=== PATIENT | male | born 1995 | race Caucasian/White ===

== ENCOUNTER 2020-04-15 19:23 | Emergency (ER) | payer BC ==
[~2020-04-15] VITALS: Ht 167.6 cm; Wt 167.8 kg
[2020-04-15 19:40] VITALS: BP 130/61
--- NOTE | 2020-04-15 19:40 | NUR ---
TO [facility]ENT AMBULATORY
--- NOTE | 2020-04-15 19:50 | NUR ---
SEEN AND EXAMINED BY JASPER WITH ORDERS AND CARRIED OUT
[2020-04-15 19:54] VITALS: BP 130/61
--- NOTE | 2020-04-15 20:05 | NUR ---
SWAB DONE AND SENT TO LAB
--- NOTE | 2020-04-15 21:44 | NUR ---
ANTIGEN SWAB RESULTED INVALID PER IRONER AND NEEDS TO BE RECOLLECTED.
--- NOTE | 2020-04-15 22:30 | NUR ---
ANTIGEN RESULTED INVALID. JASPER SRIVASTAVA MADE AWARE.
--- NOTE | 2020-04-15 22:39 | NUR ---
Patient discharged with v/s stable. Written and verbal after care instructions given and explained. Patient alert, oriented and verbalized understanding of instructions. Ambulatory with steady gait. All questions addressed prior to discharge. ID band removed. Patient advised to follow up with PMD. Rx of NAPROSYN, ALBUTEROL, GUAISTUSSIN given. Patient educated on indication of medication including possible reaction and side effects. Opportunity to ask questions provided and answered.
== END 2020-04-15 22:39 | disposition home or self-care (01) ==
LOC: MED 19:23
DX: U07.1 COVID-19 (principal); F17.210 Nicotine dependence, cigarettes, uncomplicated; Z71.6 Tobacco abuse counseling
CPT/HCPCS: 71045; 87426; 93005; 99285; U0003